=== PATIENT | female | born 2000 | race Caucasian/White ===

== ENCOUNTER 2022-04-26 22:52 | Emergency (ER) | payer OTHER ==
[~2022-04-26] VITALS: Ht 165.1 cm; Wt 72.7 kg
[2022-04-26] MEDS ORDERED: CEPHALEXIN500 M1 PO (23:41)
[2022-04-26 23:54] VITALS: BP 129/75; PULSE 72; TEMP 98.1
== END 2022-04-26 23:54 | disposition home or self-care (01) ==
LOC: COL.ER 22:52
DX: S81.012A Laceration without foreign body, left knee, initial encounter (principal); S80.211A Abrasion, right knee, initial encounter; Z23 Encounter for immunization; W18.30XA Fall on same level, unspecified, initial encounter; Y92.59 Other trade areas as the place of occurrence of the external cause; Y93.02 Activity, running